=== PATIENT | female | born 1990 | race Caucasian/White ===

== ENCOUNTER 2018-01-28 08:59 | Emergency (ER) | payer MEDICAID ==
[~2018-01-28] VITALS: Ht 170.2 cm; Wt 64.0 kg
[2018-01-28] MEDS ORDERED: LIDOCAINE HCL/PF 1% 10 MG/ML 5ML VIAL IJ ONE (10:00)
[2018-01-28] MEDS ORDERED: BACITRACIN ZINC OINT UDPKT TOP ONE (10:00)
[2018-01-28] MEDS ORDERED: TETANUS, DIPHTHERIA, PERTUSSIS VAC/PF 0.5ML (>7YR OLD) IM ONE (10:00)
[2018-01-28 12:22] VITALS: BP 130/72
== END 2018-01-28 12:22 | disposition home or self-care (01) ==
LOC: ER 09:25
DX: S61.211A Laceration without foreign body of left index finger without damage to nail, initial encounter (principal); W26.0XXA Contact with knife, initial encounter; Y93.89 Activity, other specified; Y92.010 Kitchen of single-family (private) house as the place of occurrence of the external cause
CPT/HCPCS: 12002; 81025; 90471; 90715; 99283; J3490

== ENCOUNTER 2018-02-06 14:24 | Emergency (ER) | payer MEDICAID ==
[~2018-02-06] VITALS: Ht 162.6 cm; Wt 66.0 kg
[2018-02-06 14:36] VITALS: BP 114/63
== END 2018-02-06 15:18 | disposition home or self-care (01) ==
LOC: ER 15:11
DX: Z48.02 Encounter for removal of sutures (principal)
CPT/HCPCS: 99281